=== PATIENT | male | born 1935 | race Caucasian/White ===

== ENCOUNTER 2019-01-03 10:23 | Inpatient (IN) ==
[2019-01-03] MEDS ORDERED: *HR* Propofol 200 MG/20 ML VIAL IVP ONE (10:33)
[2019-01-03] MEDS ORDERED: Ondansetron 4 MG/2 ML VIAL ONE (10:33)
[2019-01-03] MEDS ORDERED: Dexamethasone 4 MG/ML VIAL ONE ×2 (10:33→11:28)
[2019-01-03] MEDS ORDERED: Lidocaine -MPF 2% 2 ML VIAL ONE (10:33)
[2019-01-03] MEDS ORDERED: Lidocaine -MPF 4% 5 ML AMPUL ONE ×2 (10:33→11:17)
[2019-01-03] MEDS ORDERED: *HR* FentaNYL (PF) 100 MCG/2 ML VIAL ONE (10:33)
[2019-01-03] MEDS ORDERED: *HR* Succinylcholine 200 MG/10 ML VIAL IVP ONE (10:33)
[2019-01-03] MEDS: Ringers Solution, Lactated 1,000 ML IVC SCH (11:16)
--- NOTE | 2019-01-03 11:58 | Anesthesia Evaluation PreOp ---
Date of Encounter: 01/03/19 Time of Encounter: 11:56 - Past History Planned Operation: EBUS Cardiac History: HTN, Hyperlipidemia, Arrhythmia (paroxysmal AFib), Other (Warfarin off x 5 days. ASA off x 4 days. CAD) Pulmonary History: Former smoker (quit 40 yrs ago), Asthma, COPD, Other (Hx Mediastinal lymphadenopathy. HEMOPTYSIS WITH 2-3 CM CHUNK IN PAPER TOWEL DURING THIS INTERVIEW) SPECIAL EDUCATION SUPERVISOR History: TIA (TIA x 3 in 2014 - NO deficits) Other Medical History: Renal (STage 3 CKDz), Diabetes Type II ("Pre-Diabetic") Anesthesia History: No Prior Anesthetic Complications, Past Anesthesia (CTR, Lung Bx, EGD/Dilation) Alcohol Use: none Drug use: none Medications and Allergies Ascorbic Acid [Vitamin C] 1,000 mg PO DAILY 09/17/17 [History] Aspirin [Lo-Dose Aspirin EC] 81 mg PO DAILY 09/17/17 [History] Cyclobenzaprine [Flexeril] 10 mg PO HS 09/17/17 [History] Levothyroxine [Synthroid] 75 mcg PO 0630 09/17/17 [History] NIFEdipine [Nifedipine ER] 30 mg PO DAILY 09/17/17 [History] Naproxen Sodium [All Day Pain Relief] 220 mg PO PRN PRN 09/17/17 [History] Nitroglycerin [Nitrostat] 0.4 mg SL DAILY 09/17/17 [History] Omeprazole 40 mg PO DAILY 09/17/17 [History] Potassium Chloride [Klor-Con 10] 20 meq PO DAILY 09/17/17 [History] Fluticasone Propionate [Flonase Allergy Relief] 2 spray NS AD 05/19/18 [History] Warfarin [Coumadin] 5 mg PO SUTU 05/19/18 [History] Albuterol Sulfate [Albuterol Inhaler] 2 puff IH Q6H #1 puff 11/18/18 [Rx] Cyanocobalamin (B-12) [Vitamin B12] 1,000 mcg IM QMONTH 11/18/18 [History] HYDROcodone/Acet 5/325 mg [[place] 5-325 mg] 1 tab PO Q6H PRN 11/18/18 [History] Albuterol Neb [Proventil Neb] 2.5 mg IH Q4HR 01/03/19 [History] Fluticasone/Salmeterol [Advair 500-50 Diskus] 1 puff PO BID 01/03/19 [History] Gabapentin [Neurontin] 100 - 300 mg PO HS 01/03/19 [History] Lovastatin 40 mg PO DAILY 01/03/19 [History] Warfarin Sodium 2.5 mg PO MOWETHFRSA 01/03/19 [History] Allergy/AdvReac Type Severity Reaction Status Date / Time codeine AdvReac See Verified 01/03/19 11:26 Comments - Meds/Allergy Pre-op Review Medications Reviewed: Yes Allergies Reviewed: Yes Beta Blockers on Current Med List: No Anesthesia Results - Labs Laboratory Tests 10/07/18 12/09/18 12/09/18 12:01 08:51 08:51 WBC 10.1 Hgb 15.5 Hct 47.7 Plt Count 187 INR Sodium 140 Potassium 4.5 Chloride 106 Carbon Dioxide 27 BUN 11 Creatinine 1.11 Est GFR (Non-Af Amer) > 60 Est Mean Plasma Glucose 128 Hemoglobin A1c 6.1 H 01/02/19 14:36 WBC Hgb Hct Plt Count INR 1.3 Sodium Potassium Chloride Carbon Dioxide BUN Creatinine Est GFR (Non-Af Amer) Est Mean Plasma Glucose Hemoglobin A1c - Imaging EKG: report reviewed Additional studies: Nuclear Stress 11/2018 mpression: Pharmacologic stress ECG is negative for ischemia at level of heart rate achieved. Gated EF = 47%. Perfusion imaging was negative for ischemia or infarct. ECHO 01/2017 Impressions: LVEF 65%. Normal left ventricular size and systolic function. Indeterminate left ventricular diastolic function. Normal right ventricular size and function. Mild mitral regurgitation. Mild tricuspid regurgitation. No pulmonary hypertension. Left Ventricular Wall Motion: Rest Echo Findings All wall segments showed normal motion. Anesthesia Exam O2 Sat Height 1.73 m Height 1.73 m Weight 88.451 kg Weight 88.451 kg O2 Sat by Pulse Oximetry 95 Vital Signs Temp Pulse Resp BP Pulse Ox 98.2 F 94 18 139/89 95 01/03/19 10:54 01/03/19 10:54 01/03/19 10:54 01/03/19 10:54 01/03/19 10:54 Height: 5'8" Weight: 195# bmi = 30 NPO (# of Hours): mnOC - HEENT Pupil (Motor): Pupils equal, EOMI Mallampati: III Teeth: Edentulous Denture Type: Upper: Complete Oral Opening: Greater than 3 - SPECIAL EDUCATION SUPERVISOR LOC: Oriented [employer] EDUCATION SUPERVISOR Motor: Normal RUE, Normal LUE, Normal RLE, Normal LLE, Normal Face [employer] EDUCATION SUPERVISOR Sensory: Normal: RUE, LUE, RLE, LLE, Face - Cardiac Rhythm: Regular Murmur: None - Pulmonary Breath Sounds: bilateral Rhonchi (COARSE WHEEZING AND COUGHING THROUGOUT EXAMINATION) Respiratory Effort: Symmetrical Anesthesia Assess/Plan ASA Score: 4 (Severe COPD, HTN, Chol, Paroxysmal AFib, PVDz, TIA, DM) Level of consciousness: Cooperative, Oriented, Tranquil Anesthetic Plan: General Monitoring Plan: Standard Monitors Recovery Plan: PACU Anes Supervising Prov Stmt: Pt seen/evaluated, R&B Discussed, questions answered and consent obtained. Mario Dee MD
[2019-01-03] MEDS ORDERED: Ipratropium/Albuterol Neb 3 ML ONE (12:00)
[2019-01-03] MEDS ORDERED: Ipratropium/Albuterol Neb 3 ML IH STA (12:20)
[2019-01-03] MEDS ORDERED: Propofol 500 MG/50 ML INFUS..BTL ONE (12:21)
[2019-01-03] MEDS ORDERED: *HR* EPINEPHrine 1 MG/10 ML SYRINGE INTRATRACH ONE (13:16)
[2019-01-03] MEDS: FentaNYL (PF) 1,000 MCG in 0.9 % Sodium Chloride 80 ML IVC SCH (15:00)
[2019-01-03] MEDS ORDERED: Naloxone 0.4 MG/ML INJ IVP PRN (15:33)
[2019-01-03] MEDS ORDERED: Artificial Tears SOLN 15 ML BOTTLE BOTH EYES PRN (15:37)
--- NOTE | 2019-01-03 15:41 | Pulmonology History & Physical ---
Date of Encounter: 01/04/19 Time of Encounter: 11:45 Assessment and Plan (1) Hemoptysis Current visit: Yes Status: Acute Patient continued to have significant amount of hemoptysis and he was treated with argon plasma coagulation as well as epinephrine topically and that temporarily helped, but needs to be monitored since there is at risk of rebleeding. Patient was on anticoagulation and that needs to be stopped and that was explained to the family after the procedure. Patient was kept intubated until tomorrow and have another look with bronchoscopy and if there is no bleeding and he can be extubated and hopefully have a plan from oncology before discharging home. This was discussed with the family at the bedside. I spent 55 min of Critical Care time with this patient. It involved decision making of high complexity to assess, manipulate, and support vital organ system failure and/or to prevent further life threatening deterioration of the patient's condition. The time involved in the performance of separately reportable procedures was not counted toward critical care time. (2) Lung cancer Current visit: Yes Status: Acute Consulted oncology to evaluate this patient since there is risk of bleeding from endobronchial lesion and even patient has expressed no interest in chemo/radiation, have explained to the family he may need it to help to shrink the tumor and hopefully lower the risk of bleeding from the tumor. Qualifiers: Laterality: right Lung location: unspecified part of lung Qualified Code(s): C34.91 - Malignant neoplasm of unspecified part of right bronchus or lung (3) Postoperative acute respiratory failure Current visit: Yes Status: Acute This is mostly an elective types of reintubation and I expect he will be easily extubated after making sure there is no risk of rebleeding from the tumor. History of Present Illness Chief complaint: Hemoptysis HPI: Mr. Newberry is a 83 year old male presented to hospital for bronchoscopy secondary to hemoptysis. I have seen this patient in the clinic and she was evaluated for lung cancer with abnormal PET scan and he was on Coumadin after he had mini strokes according to the daughter. Patient was found to have a large endobronchial lesion which was bleeding during bronchoscopy and due to the risk of bleeding that can happen again he was kept intubated and admitted to the intensive care unit for close monitoring. Patient has also underlying history of COPD and his been on bronchodilators. Patient was on Coumadin which was held prior to procedure. He has seen oncologist for the lung mass. Past Med Surg Social Fam HX - Past Medical History Medical history: arthritis, atrial fibrillation, COPD, coronary artery disease, GERD, hyperlipidemia, hypertension, TIA, other Additional medical history: cervial radiculopathy, metabolic syndrome, asbestosis, myelodysplastic syndrome, DDD Psychiatric history: no psych history - Past Surgical History Surgical History: cataract, other Additional surgical history: carpal tunnel - Social History Smoking Status: Former smoker Smokeless Tobacco Status: No Alcohol use: none Drug use: none Medications and Allergies Ascorbic Acid [Vitamin C] 1,000 mg PO DAILY 09/17/17 [History] Aspirin [Lo-Dose Aspirin EC] 81 mg PO DAILY 09/17/17 [History] Cyclobenzaprine [Flexeril] 10 mg PO HS 09/17/17 [History] Levothyroxine [Synthroid] 75 mcg PO 0630 09/17/17 [History] NIFEdipine [Nifedipine ER] 30 mg PO DAILY 09/17/17 [History] Naproxen Sodium [All Day Pain Relief] 220 mg PO PRN PRN 09/17/17 [History] Nitroglycerin [Nitrostat] 0.4 mg SL DAILY 09/17/17 [History] Potassium Chloride [Klor-Con 10] 20 meq PO DAILY 09/17/17 [History] RX: Omeprazole 40 mg PO DAILY 09/17/17 [History] Fluticasone Propionate [Flonase Allergy Relief] 2 spray NS AD 05/19/18 [History] Warfarin [Coumadin] 5 mg PO SUTU 05/19/18 [History] Albuterol Sulfate [Albuterol Inhaler] 2 puff IH Q6H #1 puff 11/18/18 [Rx] Cyanocobalamin (B-12) [Vitamin B12] 1,000 mcg IM QMONTH 11/18/18 [History] HYDROcodone/Acet 5/325 mg [[place] 5-325 mg] 1 tab PO Q6H PRN 11/18/18 [History] Albuterol Neb [Proventil Neb] 2.5 mg IH Q4HR 01/03/19 [History] Fluticasone/Salmeterol [Advair 500-50 Diskus] 1 puff PO BID 01/03/19 [History] Lovastatin 40 mg PO DAILY 01/03/19 [History] RX: Gabapentin [Neurontin] 100 - 300 mg PO HS 01/03/19 [History] Warfarin Sodium 2.5 mg PO MOWETHFRSA 01/03/19 [History] Allergy/AdvReac Type Severity Reaction Status Date / Time codeine AdvReac See Verified 01/03/19 11:26 Comments All Systems: The remainder of the systems were reviewed and are negative Physical Examination Vital Signs: Vital Signs, Last 4 Hours Temp Pulse Resp BP Pulse Ox 01/03/19 15:06 98.5 F 102 14 104/69 98 01/03/19 14:40 15 131/117 97 General appearance: no acute distress Eyes: nonicteric ENT: oropharynx moist Neck: supple Effort: mildly labored Auscultation: left: rhonchi, right: clear Tactile fremitus: bilateral: normal Cardiovascular: irregular rhythm Gastrointestinal: normoactive bowel sounds, non-distended Extremities: no cyanosis, edema normal mental status (Before intubation), non-focal exam mood appropriate Results - Laboratory Findings CBC and BMP: 01/04/19 00:46
[2019-01-03] MEDS ORDERED: 0.9 % Sodium Chloride 1,000 ML ONE (15:50)
[2019-01-03 15:52] LABS: ABG Base Excess 2 mEq/L (-2 to 3); ABG HCO3 30 mEq/L (21-27); ABG Oxygen Saturation 97 % (95-98); ABG PCO2 58 mmHg (35-45); ABG PH 7.32 pH Units (7.32-7.45); ABG PO2 96 mmHg (85-104); ABG TCO2 32 mEq/L (20-26); Blood Gas Modality ASSIST CONTROL; Blood Gas PEEP 5 cm H2O; Blood Gas Respiration Rate 12; Blood Gas VT 500 cc
[2019-01-03] MEDS: Pantoprazole 40 MG VIAL IVP SCH (15:59)
[2019-01-03] MEDS: 0.9 % Sodium Chloride 1,000 ML IVC SCH (16:03)
[2019-01-03 16:11] LABS: Basophils % 0.1 %; Eosinophils % 0.3 %; Hematocrit 45.2 % (37.5-50.1); Hemoglobin 14.9 g/dL (12.9-16.9); Immature Granulocytes % 0.5 % (0-4); Lymphocytes # 0.5 K/mcL (0.6-4.6); Lymphocytes % 3.6 %; Mean Corpuscular Hemoglobin 30.6 pg (28.0-33.3); Mean Corpuscular Volume 92.8 fL (83.0-100.0); Mean Platelet Volume 10.4 fL (9.4-12.4); Monocytes # 0.5 K/mcL (0.0-1.3); Monocytes % 3.7 %; Neutrophils # 11.4 K/mcL (1.6-8.9); Platelet Count 165 K/mcL (140-400); Red Blood Count 4.87 M/mcL (4.19-5.50); Red Cell Distribution Width 13.2 % (11.5-14.5); Segmented Neutrophils % 91.8 %
[2019-01-03] MEDS: Famotidine 20 MG/2 ML VIAL IVP SCH (17:03)
[2019-01-03] MEDS: Artificial Tears SOLN 15 ML BOTTLE BOTH EYES SCH ×2 (17:03→20:55)
[2019-01-03 17:50] LABS: Appearance of Body Fluid Hazy (Clear); Volume of Body Fluid 15 mL
[2019-01-03] MEDS: Chlorhexidine Rinse 15 ML MOUTHWASH MM SCH (20:55)
[2019-01-04] MEDS: Artificial Tears SOLN 15 ML BOTTLE BOTH EYES SCH ×4 (00:06→11:34)
[2019-01-04] MEDS: FentaNYL (PF) 1,000 MCG in 0.9 % Sodium Chloride 80 ML IVC SCH (00:07)
[2019-01-04 01:17] LABS: Basophils % 0.1 %; Hematocrit 45.2 % (37.5-50.1); Hemoglobin 14.7 g/dL (12.9-16.9); Immature Granulocytes % 0.4 % (0-4); Lymphocytes # 0.7 K/mcL (0.6-4.6); Lymphocytes % 9.2 %; Mean Corpuscular HGB Conc 32.5 g/dL (31.6-35.5); Mean Corpuscular Hemoglobin 30.5 pg (28.0-33.3); Mean Corpuscular Volume 93.8 fL (83.0-100.0); Mean Platelet Volume 10.4 fL (9.4-12.4); Monocytes # 0.2 K/mcL (0.0-1.3); Monocytes % 2.8 %; Neutrophils # 6.8 K/mcL (1.6-8.9); Platelet Count 162 K/mcL (140-400); Red Blood Count 4.82 M/mcL (4.19-5.50); Red Cell Distribution Width 13.2 % (11.5-14.5); Segmented Neutrophils % 87.5 %
[2019-01-04] MEDS: 0.9 % Sodium Chloride 1,000 ML IVC SCH ×2 (02:35→11:34)
[2019-01-04 04:40] LABS: ABG Base Excess 1 mEq/L (-2 to 3); ABG HCO3 29 mEq/L (21-27); ABG Oxygen Saturation 95 % (95-98); ABG PCO2 56 mmHg (35-45); ABG PH 7.32 pH Units (7.32-7.45); ABG PO2 85 mmHg (85-104); ABG TCO2 31 mEq/L (20-26); Blood Gas Modality ASSIST CONTROL; Blood Gas PEEP 5 cm H2O; Blood Gas Respiration Rate 12; Blood Gas VT 450 cc
[2019-01-04] MEDS: Famotidine 20 MG/2 ML VIAL IVP SCH (05:56)
[2019-01-04] MEDS: Chlorhexidine Rinse 15 ML MOUTHWASH MM SCH (08:59)
[2019-01-04] MEDS: Pantoprazole 40 MG VIAL IVP SCH (08:59)
[2019-01-04] MEDS: Ringers Solution, Lactated 1,000 ML IVC SCH (09:00)
[2019-01-04] MEDS ORDERED: *HR* Metoprolol 5 MG/5 ML VIAL IVP PRN (11:26)
[2019-01-04] MEDS ORDERED: *HR* Metoprolol 5 MG/5 ML VIAL IVP ONE ×2 (11:26→11:27)
--- NOTE | 2019-01-04 12:13 | Oncology Inp Consult Note ---
Date of Encounter: 01/04/19 - Data of Consult Requesting Physician: Jeanne Arnold MD Primary Care Provider: Dorothea Ugalde Past Med Surg Social Fam HX - Past Medical History Medical history: arthritis, atrial fibrillation, COPD, coronary artery disease, GERD, hyperlipidemia, hypertension, TIA, other Additional medical history: cervial radiculopathy, metabolic syndrome, asbestosis, myelodysplastic syndrome, DDD Psychiatric history: no psych history - Past Surgical History Surgical History: cataract, other Additional surgical history: carpal tunnel - Social History Smoking Status: Former smoker Smokeless Tobacco Status: No Alcohol use: none Drug use: none Medications and Allergies Ascorbic Acid [Vitamin C] 1,000 mg PO DAILY 09/17/17 [History] Aspirin [Lo-Dose Aspirin EC] 81 mg PO DAILY 09/17/17 [History] Cyclobenzaprine [Flexeril] 10 mg PO HS 09/17/17 [History] Levothyroxine [Synthroid] 75 mcg PO 0630 09/17/17 [History] NIFEdipine [Nifedipine ER] 30 mg PO DAILY 09/17/17 [History] Naproxen Sodium [All Day Pain Relief] 220 mg PO PRN PRN 09/17/17 [History] Nitroglycerin [Nitrostat] 0.4 mg SL DAILY 09/17/17 [History] Omeprazole 40 mg PO DAILY 09/17/17 [History] Potassium Chloride [Klor-Con 10] 20 meq PO DAILY 09/17/17 [History] Fluticasone Propionate [Flonase Allergy Relief] 2 spray NS AD 05/19/18 [History] Warfarin [Coumadin] 5 mg PO SUTU 05/19/18 [History] Albuterol Sulfate [Albuterol Inhaler] 2 puff IH Q6H #1 puff 11/18/18 [Rx] Cyanocobalamin (B-12) [Vitamin B12] 1,000 mcg IM QMONTH 11/18/18 [History] HYDROcodone/Acet 5/325 mg [[place] 5-325 mg] 1 tab PO Q6H PRN 11/18/18 [History] Albuterol Neb [Proventil Neb] 2.5 mg IH Q4HR 01/03/19 [History] Fluticasone/Salmeterol [Advair 500-50 Diskus] 1 puff PO BID 01/03/19 [History] Gabapentin [Neurontin] 100 - 300 mg PO HS 01/03/19 [History] Lovastatin 40 mg PO DAILY 01/03/19 [History] Warfarin Sodium 2.5 mg PO MOWETHFRSA 01/03/19 [History] Allergy/AdvReac Type Severity Reaction Status Date / Time codeine AdvReac See Verified 01/03/19 11:26 Comments Consult Discharge Plan - Plan Referrals: Dorothea Ugalde MD [Primary Care Provider] -
[2019-01-04 13:21] VITALS: BP 120/80
--- NOTE | 2019-01-04 13:30 | Discharge Summary ---
<Aubrey Britton - Last Filed: 01/04/19 14:09> - NOTES TO OUTPATIENT PROVIDER Notes to Outpatient Provider: Patient was brought to the hospital for outpatient bronchoscopy secondary to hemoptysis. He was previously found to have lung cancer with abnormal PET scan on an outpatient basis. During bronchoscopy he was found to have bleeding endobronchial lesion which instigated admission to the ICU for monitoring. The patient remained intubated overnight. He was successfully extubated the next day without incident. He established outpatient follow-up with oncology and was considered stable for discharge. Orders not resulted at time of discharge: Pending orders 01/03/19 13:00 Culture,Respiratory [RM] Routine 01/03/19 13:17 Surgical Pathology [PTH] Stat 01/04/19 06:00 XR KUB [XR] Routine Date of Encounter: 01/04/19 Time of Encounter: 14:09 - Discharge Diagnosis (1) Hemoptysis Priority: Primary Status: Acute Comments: Bronchoscopy was performed for hemoptysis. Large bleeding endobronchial lesion was found on bronchoscopy. Bleeding was treated with argon plasma coagulation as well as topical epinephrine, however there was a significant risk of rebleeding. The patient was kept intubated overnight for repeat bronchoscopy the next day. The patient had no further issues and was successfully extubated. Oncology consult was placed, the patient had established outpatient follow-up and wanted to follow-up from home. Oncology did see the patient and explained that recommendations will be made based on biopsy results, and established that their recommendation was to stay inpatient and await results. He stated he would rather go home. He was considered stable for discharge and was sent home. (2) Lung cancer Priority: Secondary Status: Acute Qualifiers: Laterality: right Lung location: unspecified part of lung Qualified Code(s): C34.91 - Malignant neoplasm of unspecified part of right bronchus or lung (3) Postoperative acute respiratory failure Priority: Secondary Status: Acute - Discharge Medications Prescriptions: Continue RX: Fluticasone Propionate [Flonase Allergy Relief] 2 spray NS AD RX: Albuterol Neb [Proventil Neb] 2.5 mg IH Q4HR RX: Fluticasone/Salmeterol [Advair 500-50 Diskus] 1 puff PO BID RX: Gabapentin [Neurontin] 100 - 300 mg PO HS RX: Lovastatin 40 mg PO DAILY RX: Ascorbic Acid [Vitamin C] 1,000 mg PO DAILY RX: Aspirin [Lo-Dose Aspirin EC] 81 mg PO DAILY RX: Cyclobenzaprine [Flexeril] 10 mg PO HS RX: Levothyroxine [Synthroid] 75 mcg PO 0630 RX: Naproxen Sodium [All Day Pain Relief] 220 mg PO PRN PRN PRN Reason: Pain RX: NIFEdipine [Nifedipine ER] 30 mg PO DAILY RX: Nitroglycerin [Nitrostat] 0.4 mg SL DAILY RX: Omeprazole 40 mg PO DAILY RX: Potassium Chloride [Klor-Con 10] 20 meq PO DAILY RX: HYDROcodone/Acet 5/325 mg [[place] 5-325 mg] 1 tab PO Q6H PRN PRN Reason: Pain RX: Cyanocobalamin (B-12) [Vitamin B12] 1,000 mcg IM QMONTH RX: Albuterol Sulfate [Albuterol Inhaler] 2 puff IH Q6H #1 puff Discontinued Warfarin [Coumadin] 5 mg PO SUTU Warfarin Sodium 2.[address] [facility] Medications: RX: Ascorbic Acid [Vitamin C] 1,000 mg PO DAILY 09/17/17 [History] RX: Aspirin [Lo-Dose Aspirin EC] 81 mg PO DAILY 09/17/17 [History] RX: Cyclobenzaprine [Flexeril] 10 mg PO HS 09/17/17 [History] RX: Levothyroxine [Synthroid] 75 mcg PO 0630 09/17/17 [History] RX: NIFEdipine [Nifedipine ER] 30 mg PO DAILY 09/17/17 [History] RX: Naproxen Sodium [All Day Pain Relief] 220 mg PO PRN PRN 09/17/17 [History] RX: Nitroglycerin [Nitrostat] 0.4 mg SL DAILY 09/17/17 [History] RX: Omeprazole 40 mg PO DAILY 09/17/17 [History] RX: Potassium Chloride [Klor-Con 10] 20 meq PO DAILY 09/17/17 [History] RX: Fluticasone Propionate [Flonase Allergy Relief] 2 spray NS AD 05/19/18 [History] RX: Albuterol Sulfate [Albuterol Inhaler] 2 puff IH Q6H #1 puff 11/18/18 [Rx] RX: Cyanocobalamin (B-12) [Vitamin B12] 1,000 mcg IM QMONTH 11/18/18 [History] RX: HYDROcodone/Acet 5/325 mg [[place] 5-325 mg] 1 tab PO Q6H PRN 11/18/18 [History] RX: Albuterol Neb [Proventil Neb] 2.5 mg IH Q4HR 01/03/19 [History] RX: Fluticasone/Salmeterol [Advair 500-50 Diskus] 1 puff PO BID 01/03/19 [History] RX: Gabapentin [Neurontin] 100 - 300 mg PO HS 01/03/19 [History] RX: Lovastatin 40 mg PO DAILY 01/03/19 [History] Allergies/Adverse Reactions: Allergy/AdvReac Type Severity Reaction Status Date / Time codeine AdvReac See Verified 01/03/19 11:26 Comments Labs on day of discharge: Labs from last 24 hours 01/04/19 01/04/19 01/04/19 11:22 04:37 00:46 WBC 7.8 RBC 4.82 Hgb 14.7 Hct 45.2 MCV 93.8 MCH 30.5 MCHC 32.5 RDW 13.2 Plt Count 162 MPV 10.4 Immature Gran % 0.4 Seg Neutrophils % 87.5 Lymphocytes % 9.2 Monocytes % 2.8 Eosinophils % 0.0 Basophils % 0.1 Neutrophils # 6.8 Lymphocytes # 0.7 Monocytes # 0.2 Eosinophils # 0.0 Basophils # 0.0 Sample Site L Radial ABG pH 7.32 ABG pCO2 56 H ABG pO2 85 ABG HCO3 29 H ABG Total CO2 31 H ABG O2 Saturation 95 ABG Base Excess 1 Xavi Test N/A Respiration Rate 12 O2 Delivery Device Adult Vent Blood Gas Modality ASSIST CONTROL Inspired O2 40.0 Tidal Volume 450 PEEP 5 POC Glucose 98 Fluid Source Fluid Volume Fluid Appearance Fluid RBC Fld Tot Nucleated Cell Fluid Seg Neutrophil % Fluid Lymphocytes % Fluid Monocytes % Fluid Other Cells % 01/03/19 01/03/19 01/03/19 23:11 15:53 15:47 WBC 12.4 H RBC 4.87 Hgb 14.9 Hct 45.2 MCV 92.8 MCH 30.6 MCHC 33.0 RDW 13.2 Plt Count 165 MPV 10.4 Immature Gran % 0.5 Seg Neutrophils % 91.8 Lymphocytes % 3.6 Monocytes % 3.7 Eosinophils % 0.3 Basophils % 0.1 Neutrophils # 11.4 H Lymphocytes # 0.5 L Monocytes # 0.5 Eosinophils # 0.0 Basophils # 0.0 Sample Site ABG pH 7.32 ABG pCO2 58 H ABG pO2 96 ABG HCO3 30 H ABG Total CO2 32 H ABG O2 Saturation 97 ABG Base Excess 2 Xavi Test Respiration Rate 12 O2 Delivery Device Adult Vent Blood Gas Modality ASSIST CONTROL Inspired O2 50.0 Tidal Volume 500 PEEP 5 POC Glucose 107 H Fluid Source Fluid Volume Fluid Appearance Fluid RBC Fld Tot Nucleated Cell Fluid Seg Neutrophil % Fluid Lymphocytes % Fluid Monocytes % Fluid Other Cells % 01/03/19 01/03/19 14:40 13:00 WBC RBC Hgb Hct MCV MCH MCHC RDW Plt Count MPV Immature Gran % Seg Neutrophils % Lymphocytes % Monocytes % Eosinophils % Basophils % Neutrophils # Lymphocytes # Monocytes # Eosinophils # Basophils # Sample Site ABG pH ABG pCO2 ABG pO2 ABG HCO3 ABG Total CO2 ABG O2 Saturation ABG Base Excess Xavi Test Respiration Rate O2 Delivery Device Blood Gas Modality Inspired O2 Tidal Volume PEEP POC Glucose 95 Fluid Source right upper lobe efraín Fluid Volume 15 Fluid Appearance Hazy A Fluid RBC TNP Fld Tot Nucleated Cell TNP Fluid Seg Neutrophil % 65.0 Fluid Lymphocytes % 12.0 Fluid Monocytes % 3.0 Fluid Other Cells % 20.0 Preliminary micro results at discharge 01/03/19 13:00 Respiratory Culture - Preliminary Other-Specify in Comments Culture is incubating. Date of admission: 01/03/19 14:45 Primary care physician: Dorothea Ugalde Consults: 01/03/19 15:45 Consult to Oncology [CONS] Routine Consulting Provider: [facility] Reason for Consult: Lung cancer and hemoptysis Call Completed: Yes Discharging clinician: Aubrey Britton Anticipated date of discharge: 01/04/19 - Patient Status Disposition: Home Health Service Condition: Good Overall status at discharge: patient is back to baseline - Discharge Instructions Follow Up With: Dorothea Ugalde MD [Primary Care Provider] - 01/10/19 4:00 pm (Hospital Follow Up ) - Diet and Activity Activity: resume usual activities as tolerated Diet: advance to your usual diet - Hospital Course Hospital course: Mr. Newberry is a 83 year old male who presented for outpatient bronchoscopy. Bronchoscopy was performed for hemoptysis. Large bleeding endobronchial lesion was found on bronchoscopy. Bleeding was treated with argon plasma coagulation as well as topical epinephrine, however there was a significant risk of rebleeding. The patient was kept intubated overnight for repeat bronchoscopy the next day. The patient had no further issues and was successfully extubated. Oncology consult was placed, the patient had established outpatient follow-up and wanted to follow-up from home. Oncology did see the patient and explained that recommendations will be made based on biopsy results, and established that their recommendation was to stay inpatient and await results. He stated he would rather go home. He was considered stable for discharge and was sent home. - Time Spent with Patient Total time spent providing and/or coordinating discharge services: Physical Examination Vital Signs: Vital Signs, Last 4 Hours Temp Pulse Resp BP Pulse Ox 01/04/19 13:00 112 17 120/80 91 01/04/19 12:00 103 11 117/104 96 01/04/19 11:48 97.7 F 01/04/19 11:00 166 24 161/145 93 01/04/19 10:30 110/63 95 01/04/19 10:00 114 18 110/63 96 01/04/19 09:55 18 110/63 96 General appearance: no acute distress, alert Eyes: nonicteric ENT: oropharynx moist Neck: supple Effort: normal Inspection: normal Auscultation: bilateral: clear Cardiovascular: irregular rhythm, other (Regular rate, irregularly irregular rhythm) Gastrointestinal: normoactive bowel sounds Integumentary: normal Extremities: no cyanosis, no edema Musculoskeletal: no deformities Gait: normal posture normal mental status, non-focal exam mood appropriate, affect normal <Jeanne Arnold M - Last Filed: 01/04/19 16:43> Orders not resulted at time of discharge: Pending orders 01/03/19 13:00 Culture,Respiratory [RM] Routine 01/03/19 13:17 Surgical Pathology [PTH] Stat 01/04/19 06:00 XR KUB [XR] Routine Date of Encounter: 01/04/19 - Discharge Diagnosis (1) Hemoptysis Status: Acute (2) Lung cancer Status: Acute Qualifiers: Laterality: right Lung location: unspecified part of lung Qualified Code(s): C34.91 - Malignant neoplasm of unspecified part of right bronchus or lung (3) Postoperative acute respiratory failure Status: Acute Labs on day of discharge: Labs from last 24 hours 01/04/19 01/04/19 01/04/19 11:22 04:37 00:46 WBC 7.8 RBC 4.82 Hgb 14.7 Hct 45.2 MCV 93.8 MCH 30.5 MCHC 32.5 RDW 13.2 Plt Count 162 MPV 10.4 Immature Gran % 0.4 Seg Neutrophils % 87.5 Lymphocytes % 9.2 Monocytes % 2.8 Eosinophils % 0.0 Basophils % 0.1 Neutrophils # 6.8 Lymphocytes # 0.7 Monocytes # 0.2 Eosinophils # 0.0 Basophils # 0.0 Sample Site L Radial ABG pH 7.32 ABG pCO2 56 H ABG pO2 85 ABG HCO3 29 H ABG Total CO2 31 H ABG O2 Saturation 95 ABG Base Excess 1 Xavi Test N/A Respiration Rate 12 O2 Delivery Device Adult Vent Blood Gas Modality ASSIST CONTROL Inspired O2 40.0 Tidal Volume 450 PEEP 5 POC Glucose 98 Fluid Source Fluid Volume Fluid Appearance Fluid RBC Fld Tot Nucleated Cell Fluid Seg Neutrophil % Fluid Lymphocytes % Fluid Monocytes % Fluid Other Cells % 01/03/19 01/03/19 23:11 13:00 WBC RBC Hgb Hct MCV MCH MCHC RDW Plt Count MPV Immature Gran % Seg Neutrophils % Lymphocytes % Monocytes % Eosinophils % Basophils % Neutrophils # Lymphocytes # Monocytes # Eosinophils # Basophils # Sample Site ABG pH ABG pCO2 ABG pO2 ABG HCO3 ABG Total CO2 ABG O2 Saturation ABG Base Excess Xavi Test Respiration Rate O2 Delivery Device Blood Gas Modality Inspired O2 Tidal Volume PEEP POC Glucose 107 H Fluid Source right upper lobe efraín Fluid Volume 15 Fluid Appearance Hazy A Fluid RBC TNP Fld Tot Nucleated Cell TNP Fluid Seg Neutrophil % 65.0 Fluid Lymphocytes % 12.0 Fluid Monocytes % 3.0 Fluid Other Cells % 20.0 Preliminary micro results at discharge 01/03/19 13:00 Respiratory Culture - Preliminary Other-Specify in Comments Culture is incubating. Date of admission: 01/03/19 14:45 Primary care physician: Dorothea Ugalde Consults: 01/03/19 15:45 Consult to Oncology [CONS] Routine Consulting Provider: [facility] Reason for Consult: Lung cancer and hemoptysis Call Completed: Yes - Hospital Course Hospital course: Mr. Newberry is a 83 year old male - Time Spent with Patient Total time spent providing and/or coordinating discharge services: Physical Examination Vital Signs: Vital Signs, Last 4 Hours Pulse Resp BP Pulse Ox 01/04/19 13:00 112 17 120/80 91 - Attending Attestation I examined this patient and my medical decision-making was reviewed with the Resident Physician. I agree with the documented findings, disposition and treatment plan as described except to the extent set forth below. Patient seen and examined. Labs, radiology, chart personally reviewed. Agree with resident's history and physical, assessment, plan with following comments: INDEPENDENT CROP CONSULTANT: Patient follows commands, Pulmonary: Acceptable oxygenation and ventilation. Patient had repeat bronchoscopy with no evidence of any active bleeding and patient wanted to go home and oncology was notified. Patient is aware if he is bleeding worsen then he will need to come to emergency room immediately. Patient was advised not to take any anticoagulation and he understand that. Patient did not want to stay in the hospital and he wanted to go home. This was also discussed with the family at the bedside. Cardiovascular: stable This discharge took more than one hour to arrange this for the patient.
--- NOTE | 2019-01-04 14:19 | Physician Discharge Referral ---
Home Health/Hosp Referral Info Transfer to: Home Health Attending Provider: Catalina Provider in Charge Post Discharge: PCP - Diagnosis (1) Hemoptysis Priority: Primary Status: Acute (2) Lung cancer Priority: Secondary Status: Acute (3) Postoperative acute respiratory failure Priority: Secondary Status: Acute - Respiratory Orders Smoking Cessation: Smoking cessation has been advised. For more information, call the [place] Tobacco Quit Line at 7-201-CXZV-NOW. - Diet/Nutrition Diet/Nutrition Orders: Regular - Activity Activity Orders: Up ad gonzalez - Services Needed Following services are medically necessary services: Nursing, Home Health Aide - Transfer Medications Home Medications: Ascorbic Acid [Vitamin C] 1,000 mg PO DAILY 09/17/17 [History] Aspirin [Lo-Dose Aspirin EC] 81 mg PO DAILY 09/17/17 [History] Cyclobenzaprine [Flexeril] 10 mg PO HS 09/17/17 [History] Levothyroxine [Synthroid] 75 mcg PO 0630 09/17/17 [History] NIFEdipine [Nifedipine ER] 30 mg PO DAILY 09/17/17 [History] Naproxen Sodium [All Day Pain Relief] 220 mg PO PRN PRN 09/17/17 [History] Nitroglycerin [Nitrostat] 0.4 mg SL DAILY 09/17/17 [History] Omeprazole 40 mg PO DAILY 09/17/17 [History] Potassium Chloride [Klor-Con 10] 20 meq PO DAILY 09/17/17 [History] Fluticasone Propionate [Flonase Allergy Relief] 2 spray NS AD 05/19/18 [History] Warfarin [Coumadin] 5 mg PO SUTU 05/19/18 [History] Albuterol Sulfate [Albuterol Inhaler] 2 puff IH Q6H #1 puff 11/18/18 [Rx] Cyanocobalamin (B-12) [Vitamin B12] 1,000 mcg IM QMONTH 11/18/18 [History] HYDROcodone/Acet 5/325 mg [[place] 5-325 mg] 1 tab PO Q6H PRN 11/18/18 [History] Albuterol Neb [Proventil Neb] 2.5 mg IH Q4HR 01/03/19 [History] Fluticasone/Salmeterol [Advair 500-50 Diskus] 1 puff PO BID 01/03/19 [History] Gabapentin [Neurontin] 100 - 300 mg PO HS 01/03/19 [History] Lovastatin 40 mg PO DAILY 01/03/19 [History] Warfarin Sodium 2.5 mg PO MOWETHFRSA 01/03/19 [History] Allergies/Adverse Reactions: Allergy/AdvReac Type Severity Reaction Status Date / Time codeine AdvReac See Verified 01/03/19 11:26 Comments Certification: Further, I certify that my clinical findings support that this patient is homebound (i.e. absences from home require considerable and taxing effort and are for medical reasons or [employer] services or infrequently or short duration when for other reasons) because: Homebound Reason: Severity of cardiac or pulmonary status limits activity tolerance Attestation: My signature below is to certify that this patient is under my care and that I, or nurse practitioner, or a physician's internal medicine physician assistant working with me, has a [id number] encounter with this patient.
--- NOTE | 2019-01-04 14:39 | Event Note ---
Date of Encounter: 01/04/19 Time of Encounter: 13:30 Ms. Newberry is an 83 year old male admitted to ICU yesterday following bronchoscopy. He was found to have a large completely obstructing congested, erythematous, friable, polypoid, vascular and raised lesion about 2 cm from the bifurcation in the right mainstem bronchus and bronchus intermedius. Fresh blood was found in the right mainstem bronchus and in the bronchus intermedius, endobronchial needle aspiration samples were obtained in the right mainstem bronchus, transbronchial needle aspiration of lesion in the subcarinal area was obtained. A blood clot was found throughout the tracheobronchial tree, the clot was successfully removed with only minor bleeding. Coagulation using a APC was performed. Rapid onset evaluation preliminary cytology is suggestive of malignancy. He was admitted to ICU and kept intubated overnight. Repeat bronchoscopy this morning revealed a blood clot that the tracheobronchial tree partially obstructing the airway, clot was successfully removed with no significant bleeding. Patient again was observed about 2 cm from the bifurcation in the right mainstem bronchus and in the bronchus intermedius. No specimens collected on this bronchoscopy. Coumadin has been stopped by ICU. Mr. Newberry has been exutabed and doing well. ICU team was planning for stepdown after discussing for our preference to evaluate patient today and potentially receive guidance from pathology department on pathology reading prior to his discharge home in the case that inpatient treatment may be needed. Patient however is not willing to stay and is being discharged from ICU. I did discuss this recommendation again with the patient but he is not willing to stay for further oncology recommendations, he wishes to follow up with Dr. Jarvis as an outpatient on Wednesday. Risks of his discharge were discussed, we also discussed s/s of which to return to ER for. I encouraged him to keep follow up with Dr. Jarvis on Wednesday, call in meantime with any questions/concerns
== END 2019-01-04 15:09 | disposition home health service (06) | DRG 163 ==
LOC: SAMDAY 10:23 → ICNU 14:45
PROVIDERS: ADMIT Internal Medicine Pulmonary Disease; ATTEND Internal Medicine Pulmonary Disease
PROC: ENDOBRF (2019-01-04 09:55)